=== PATIENT | female | born 2000 | race African-American/Black ===

== ENCOUNTER 2021-09-04 04:11 | Inpatient (IN) ==
[2021-09-04] MEDS ORDERED: TRANEXAMIC ACID 1,000 MG in SODIUM CHLORIDE 0.9% 100 ML IV PRN (05:10)
[2021-09-04] MEDS ORDERED: miSOPROStoL 200 MCG TABLET RECTAL PRN (05:10)
[2021-09-04] MEDS ORDERED: CARBOPROST TROMETHAMINE 250 MCG/ML AMP IM PRN (05:10)
[2021-09-04] MEDS ORDERED: ONDANSETRON 4 MG/2 ML VIAL IV PRN (05:10)
[2021-09-04] MEDS ORDERED: LACTATED RINGERS 500 ML IV PRN (05:10)
[2021-09-04] MEDS ORDERED: METHYLERGONOVINE 0.2 MG/1 ML AMP IM PRN (05:10)
[2021-09-04] MEDS: LACTATED RINGERS 1,000 ML IV SCH ×2 (05:15→07:17)
[2021-09-04] MEDS ORDERED: LACTATED RINGERS 250 ML IV ONE (05:30)
[2021-09-04] MEDS ORDERED: OXYTOCIN/LR 20 UNIT/1,000 ML BAG IV ONE (05:30)
[2021-09-04] MEDS ORDERED: AMPICILLIN INJ 2,000 MG in SODIUM CHLORIDE 0.9% 100 ML IV ONE (05:30)
[2021-09-04 05:35] LABS: Basophils # 0.1 10*3/uL (0.0-0.2); Basophils % 0.7 % (0.0-0.8); Eosinophils % 0.4 % (0.00-10.9); Hematocrit 29.1 VOL% (35.7-47.0); Hemoglobin 9.4 GM/DL (12.0-16.0); Immature Granulocytes % 1.5 %; Immature Granulocytes Absolute 0.13 #; Lymphocytes # 2.3 10*3/uL (1.4-4.0); Lymphocytes % 25.6 % (21.3-54.2); Mean Corpuscular HGB Conc 32.3 GM/DL (32-36); Mean Corpuscular Volume 91.8 FL (87-102); Mean Platelet Volume 10.7 FL (9.6-12.0); Monocytes % 11.3 % (1.7-12.7); Neutrophils % 60.5 % (38.7-73.9); Platelet Count 147 T/CUMM (130-400); Red Blood Count 3.17 MC/CUMM (3.8-5.5); Red Cell Distribution Width 13.4 % (9.3-17.3); White Blood Count 8.9 T/CUMM (4-12)
[2021-09-04] MEDS ORDERED: BUTORPHANOL 1 MG/ML VIAL IV PRN (05:49)
[2021-09-04] MEDS ORDERED: NALOXONE 0.4 MG/ML VIAL IV PRN (06:12)
[2021-09-04] MEDS ORDERED: hydrOXYzine HCL 25 MG/1 ML VIAL IM PRN (06:12)
[2021-09-04] MEDS ORDERED: diphenhydrAMINE 50 MG/1 ML VIAL IV PRN ×2 (06:12)
[2021-09-04] MEDS ORDERED: PROMETHAZINE 25 MG/1 ML VIAL IM ONE (06:12)
[2021-09-04] MEDS ORDERED: ePHEDrine 50 MG/ML VIAL IV PRN (06:12)
[2021-09-04] MEDS ORDERED: CITRIC ACID/SODIUM CITRATE 30 ML UDCUP ONE (06:15)
[2021-09-04] MEDS ORDERED: fentaNYL 2 MCG/ROPIV 0.2% EPID 100 ML EPIDURAL ONE (06:16)
[2021-09-04] MEDS ORDERED: FAMOTIDINE 20 MG/2 ML VIAL IV ONE ×2 (06:17→06:30)
[2021-09-04] MEDS ORDERED: fentaNYL 2 MCG/ROPIV 0.2% EPID 100 ML EPIDURAL SCH (06:30)
[2021-09-04] MEDS ORDERED: CITRIC ACID/SODIUM CITRATE 30 ML UDCUP PO ONE (06:30)
[2021-09-04] MEDS ORDERED: miSOPROStoL 200 MCG TABLET ONE (07:09)
[2021-09-04] MEDS ORDERED: TRANEXAMIC ACID 1,000 MG/10 ML VIAL ONE (07:09)
[2021-09-04] MEDS ORDERED: SODIUM CHLORIDE 0.9% 0 ML IV ONE (07:10)
[2021-09-04] MEDS ORDERED: METHYLERGONOVINE 0.2 MG/1 ML AMP ONE (07:10)
[2021-09-04] MEDS ORDERED: CARBOPROST TROMETHAMINE 250 MCG/ML AMP IM ONE (07:10)
[2021-09-04 08:52] LABS: Bilirubin,Urine Negative (Negative); Blood, Urine Negative (Negative); Glucose,Urine (UA) Negative (Negative); Ketones,Urine Negative (Negative); Nitrite,Urine Negative (Negative); Protein,Urine Negative (Negative); Urine Appearance Clear (Clear); Urine Color Yellow (Yellow); Urine Specific Gravity 1.015 (1.001-1.035); Urine Urobilinogen 0.2 eU/dL (<2.0); Urine pH 7.5 (4.5-8.0)
[2021-09-04 08:53] LABS: RBC,Urine <1 /HPF (0-4); Squamous Epithelial Cell,Urine Occasional /HPF (0-10)
[2021-09-04 09:15] LABS: Cord Venous Blood HCO3 23.4 MMOL/L; Cord Venous Blood PCO2 45.2 MMHG; Cord Venous Blood PO2 31.7
[2021-09-04] MEDS ORDERED: AMPICILLIN INJ 1,000 MG in SODIUM CHLORIDE 0.9% 100 ML IV SCH (09:30)
[2021-09-04] MEDS ORDERED: IBUPROFEN 800 MG TABLET PO ONE (11:40)
[2021-09-04 12:38] LABS: Rubella Antibody IgG Result Reactive (NonReactive)
[2021-09-04] MEDS: METHYLERGONOVINE 0.2 MG TABLET PO SCH ×3 (15:12→21:04)
[2021-09-04] MEDS ORDERED: IBUPROFEN 800 MG TABLET PO PRN (19:30)
[2021-09-04] MEDS: FERROUS SULFATE 325 MG TABLET PO SCH (21:04)
[2021-09-04] MEDS: DOCUSATE SODIUM 100 MG CAPSULE PO SCH (21:05)
[2021-09-05] MEDS: METHYLERGONOVINE 0.2 MG TABLET PO SCH (03:31)
[2021-09-05 06:30] LABS: Basophils # 0.1 10*3/uL (0.0-0.2); Basophils % 0.5 % (0.0-0.8); Eosinophils % 0.4 % (0.00-10.9); Hematocrit 34.8 VOL% (35.7-47.0); Hemoglobin 11.1 GM/DL (12.0-16.0); Immature Granulocytes % 0.5 %; Immature Granulocytes Absolute 0.05 #; Lymphocytes # 2.3 10*3/uL (1.4-4.0); Lymphocytes % 21.1 % (21.3-54.2); Mean Corpuscular HGB Conc 31.9 GM/DL (32-36); Mean Corpuscular Volume 90.9 FL (87-102); Mean Platelet Volume 11.4 FL (9.6-12.0); Monocytes % 8.7 % (1.7-12.7); Neutrophils % 68.8 % (38.7-73.9); Platelet Count 142 T/CUMM (130-400); Red Blood Count 3.83 MC/CUMM (3.8-5.5); Red Cell Distribution Width 13.5 % (9.3-17.3); White Blood Count 10.9 T/CUMM (4-12)
[2021-09-05] MEDS: DOCUSATE SODIUM 100 MG CAPSULE PO SCH ×2 (08:33→21:10)
[2021-09-05] MEDS: FERROUS SULFATE 325 MG TABLET PO SCH ×2 (08:34→21:10)
[2021-09-06] MEDS: FERROUS SULFATE 325 MG TABLET PO SCH ×2 (07:50→08:34)
[2021-09-06] MEDS: DOCUSATE SODIUM 100 MG CAPSULE PO SCH ×2 (07:50→08:34)
[2021-09-06 08:05] VITALS: BP 120/65
[2021-09-06] MEDS ORDERED: DIPH/TET/ACEL PERT BOOSTER VACCINE 0.5 ML VIAL IM ONE (10:42)
== END 2021-09-06 11:50 | disposition home or self-care (01) | DRG 542 ==
LOC: N.LD 04:11 → N.OB 13:23
PROVIDERS: ADMIT Obstetrics & Gynecology; ATTEND Obstetrics & Gynecology